=== PATIENT | female | born 1960 | race Caucasian/White ===

== ENCOUNTER 2024-07-08 13:53 | Day surgery (SDC) | payer OTHER, SELFPAY ==
--- NOTE | 2024-07-08 14:04 | FL_ITS ---
[address] [address] Patient Name: CALEB BECERRIL MRN: [id number] date: 1960 Sex: F Assigned Patient Location: OR Current Patient Location: Accession/Order Number: [id number] Exam Date: 07/08/2024 14:45 Report Date: 07/08/2024 15:47 At the request of: EAMON LIM Procedure: FL hip inj RT EXAMINATION: FL hip inj RT HISTORY: Right Hip Osteoarthritis COMPARISON: No relevant comparison available. TECHNIQUE: A joint injection was performed in the usual sterile manner after obtaining informed consent. Standard level fluoroscopic mode of operation utilized. FINDINGS: JOINT: Right hip. NEEDLE: 22 gauge, 3.5 spinal needle. MEDICATION: 4cc buffered 1% lidocaine for subcutaneous anesthesia 3 mL Omnipaque 240. 40 mg of Kenalog. 2 mm 0.5% bupivacaine TECHNIQUE: Anterior approach with prior localization of the femoral artery. A single stick was successful in gaining access to the joint space. CLINICAL: Near complete resolution of hip pain following the injection. COMPLICATIONS: None. OTHER: 1.1 minutes of fluoroscopy. 2 images. FL/FL hip inj RT IMPRESSION: Technically successful right hip therapeutic arthrogram Electronically authenticated by: LINDA THURSTON Date: 07/08/2024 15:47
--- NOTE | 2024-07-08 14:04 | FL_ITS ---
[address] [address] Patient Name: CALEB BECERRIL MRN: [id number] date: 1960 Sex: F Assigned Patient Location: [place] Current Patient Location: [place] Accession/Order Number: [id number] Exam Date: 07/08/2024 14:45 Report Date: 07/08/2024 16:00 At the request of: EAMON LIM Procedure: FL guided needle placement EXAMINATION: FL hip inj RT HISTORY: Right Hip Osteoarthritis COMPARISON: No relevant comparison available. TECHNIQUE: A joint injection was performed in the usual sterile manner after obtaining informed consent. Standard level fluoroscopic mode of operation utilized. FINDINGS: JOINT: Right hip. NEEDLE: 22 gauge, 3.5 spinal needle. MEDICATION: 4cc buffered 1% lidocaine for subcutaneous anesthesia 3 mL Omnipaque 240. 40 mg of Kenalog. 2 mm 0.5% bupivacaine TECHNIQUE: Anterior approach with prior localization of the femoral artery. A single stick was successful in gaining access to the joint space. CLINICAL: Near complete resolution of hip pain following the injection. COMPLICATIONS: None. OTHER: 1.1 minutes of fluoroscopy. 2 images. FL/FL guided needle placement IMPRESSION: Technically successful right hip therapeutic arthrogram Gregory Pollack Electronically authenticated by: GREGORY POLLACK Date: 07/08/2024 16:00
[2024-07-08] MEDS: LIDOCAINE HCL 10 ML, SODIUM BICARBONATE 1 MEQ INJ (14:45)
[2024-07-08] MEDS: TRIAMCINOLONE ACETONIDE 40 MG/ML VIAL INJ (14:45)
[2024-07-08] MEDS: BUPIVACAINE HCL 0.5% PF 50 MG/10 ML VIAL 2 ML INJ (14:45)
--- NOTE | 2024-07-08 15:19 | SUR.PREOP ---
06/28/24 Pt instructed on procedure, date, time, and prep.
== END 2024-07-08 15:05 | disposition home or self-care (01) ==
LOC: FL 13:56
PROVIDERS: Radiology Diagnostic Radiology; PCP Internal Medicine; Visit Provider Orthopaedic Surgery
DX: M16.11 Unilateral primary osteoarthritis, right hip (principal)
CPT/HCPCS: 20610; 77002; J0665; J3301; Q9966